=== PATIENT | female | born 1985 | race Two or more races ===

== ENCOUNTER → 2016-10-14 | Outpatient (CLI) | payer MEDICAID | LOC: CIMAGING 07:04 | PROVIDERS: ATTEND Surgery | DX: R10.9 Unspecified abdominal pain (principal) | CPT/HCPCS: 76705-PO ==

== ENCOUNTER 2016-10-22 08:56 | Observation (INO) | payer MEDICAID ==
--- NOTE | 2016-10-22 08:00 | GHP ---
[f rep st] PREOP HISTORY AND PHYSICAL DATE OF ADMISSION: 10/22/2016 CHIEF COMPLAINT: Abdominal pain with lump. HISTORY OF PRESENT ILLNESS: The patient is a 31-year-old female who was referred here for an abdominal lump that has been bothering her for 3-1/2 months. It has been causing her pain which has gotten progressively worse. It is near an incision originally from an abdominoplasty that has already had a hernia repair. Other past surgical history includes cholecystectomy, appendectomy, cervical vertebral fusion, and gastric bypass surgery. She also reports a history of pulmonary embolism after surgery and she has been told she will need to take Lovenox after any surgery under general anesthesia. Her current weight is 305 pounds. PAST MEDICAL HISTORY: Abdominal pain, back pain, migraines, depression, hypothyroid, seizure disorder, Jarek-Danlos syndrome, mast cell activation syndrome. PAST SURGICAL HISTORY: Abdominoplasty, appendectomy, cervical fusion, coccyx excision, panniculectomy, gastric bypass, cholecystectomy, foot surgery, hysterectomy, tonsillectomy, adenoidectomy. MEDICATIONS: Cymbalta, Keppra, lorazepam, Synthroid. ALLERGIES: No known drug allergies. FAMILY HISTORY: Includes cancer and coronary artery disease. SOCIAL HISTORY: The patient does not drink alcohol. She lives with her mother. No tobacco. PHYSICAL EXAMINATION: GENERAL: Reveals a well-developed, well-groomed 31-year- old female, alert and oriented x3, in no acute distress with a service dog. HEENT: Normocephalic, atraumatic. Pupils equal and round. CARDIAC: Regular rate and rhythm. PULMONARY: Clear to auscultation. ABDOMEN: Tender midline hernia, nonreducible. No skin color changes. EXTREMITIES: Warm and dry. IMPRESSION: This is a 31-year-old female with a recurrent incisional incarcerated ventral hernia. PLAN: Plan is to proceed with open incarcerated recurrent ventral hernia repair with possible use of mesh. Risks and options were discussed and she requests to proceed. We will plan to keep her in the hospital overnight and she will likely have Lovenox shots as soon as it is safe to do so. /[id number]/MODL MTDD
[2016-10-22] MEDS ORDERED: ceFAZolin 2 GM/DEXTROSE 100 ML IV ONE (09:09)
[2016-10-22] MEDS ORDERED: BUPIVACAINE 0.5% 30 ML SDV ONE (09:34)
[2016-10-22 09:38] VITALS: PULSE 79
[2016-10-22] MEDS ORDERED: LR 1,000 ML IV ONE (09:42)
--- NOTE | 2016-10-22 09:51 | PDANEPAE ---
ANE History of Present Illness VHR, pt has EDS and mast cell activation ANE Past Medical History - Cardiovascular History Hx Hypertension: No Hx Arrhythmias: No Hx Chest Pain: No Hx Coronary Artery / Peripheral Vascular Disease: No Hx CHF / Valvular Disease: No Hx Palpitations: No - Pulmonary History Hx COPD: No Hx Asthma/Reactive Airway Disease: No Hx Recent Upper Respiratory Infection: No Hx Oxygen in Use at Home: No Hx Sleep Apnea: Yes Sleep Apnea Screening Result - Last Documented: Positive Pulmonary History Comment: YENNI RECOMMENDED PT USE HS OXYGEN NOT CURRENTLY IN USE - Neurologic History Hx Cerebrovascular Accident: No Hx Seizures: Yes Hx Dementia: No Neurologic History Comment: SINCE 2003, LAST SEIZURE 2010 - Endocrine History Hx Diabetes: No Endocrine History Comment: HYPOTHYROID - Renal History Hx Renal Disorders: Yes Renal History Comment: UA INCONT - Liver History Hx Hepatic Disorders: No - Neurological & Psychiatric Hx Hx Neurological and Psychiatric Disorders: Yes Neurological / Psychiatric History Comment: MANIC DEPRESSIVE DISORDER. BORDERLINE PERSONALITY DISORDER. MIGRAINES 2-3 TIMES A YEAR. ANXIETY - Cancer History Hx Cancer: No - Congenital Disorder History Hx Congenital Disorders: No - GI History Hx Gastrointestinal Disorders: Yes Gastrointestinal History Comment: CHRONIC ABD/PELVIC PAIN - Other Health History Other Health History: ELHERS DANLOS MAST CELL SYNDROME. ANEMIA. DDD - Chronic Pain History Chronic Pain: Yes (MAGALIE FEET,LOWER BACK AND NECK) - Surgical History Prior Surgeries: LT ACHILLES TENDON 09/2015. L FOOT NEUROMA 08/21/2015. R GASTRONEMIUS RELEASE / NEUROMA EXCISION 05/2015. REMVL ABD LIPOMA 03/2015. CERVICAL FUSION 08/2014. GASTRIC BYPASS 2011. APPY. SHEREE ROSARIO Review of Systems Review of systems is: negative - Exercise capacity Exercise capacity: >=4 METS METS (RN): 4 METS - Systems Constitutional: Reports: no symptoms Cardiac: Reports: no symptoms Respiratory: Reports: no symptoms Muscolosketal: Reports: joint pain Skin: Reports: other (hypermobility) Neurological: Reports: depressed, seizure ANE Patient History - Allergies Allergies/Adverse Reactions: ibuprofen [Ibuprofen] Allergy (Mild, Verified 02/02/13 01:19) Itching adhesive tape Allergy (Verified 08/12/15 13:14) Rash doxycycline Allergy (Verified 08/12/15 13:14) headache,nausea and elevated BP gabapentin Allergy (Verified 09/17/15 12:44) NAUSEA, HEADACHE & ELEV BP haloperidol [From Haldol] Allergy (Verified 09/17/15 16:46) MUSCULAR STIFFNESS surgical glue Allergy (Uncoded 05/29/15 09:32) itching and blisters - Home Medications Home Medications: Acetaminophen/Codeine 300/30Mg [Tylenol #3 (*)] 1 each PO Q6 PRN 10/21/16 [Last Taken 10/21/16 23:00] DULoxetine [Cymbalta 30 MG (*)] 30 mg PO HS 10/21/16 [Last Taken 10/21/16] DULoxetine [Cymbalta 30 MG (*)] 60 mg PO DAILY 10/21/16 [Last Taken 10/22/16 08: 00] Levothyroxine [Synthroid 112 mcg (*)] 112 mcg PO DAILY06 10/21/16 [Last Taken ] levETIRAcetam [Keppra 500 mg (*)] 1,000 mg PO BID 10/21/16 [Last Taken 10/22/16 08:00] traZODone [traZODONE 50MG (*)] 50 mg PO HS 10/21/16 [Last Taken 10/21/16 23:00] - NPO status NPO Status: no food or drink >8 hours NPO Since - Liquids (Date): 10/22/16 NPO Since - Liquids (Time): 08:00 NPO Since - Solids (Date): 10/21/16 NPO Since - Solids (Time): 23:00 - Anes Hx Anes Hx: awareness under anesthesia - Smoking Hx Smoking Status: Former smoker - Alcohol Use Alcohol Use: None - Family Anes Hx Family Anes Hx: none Family Hx Anesthesia Complications: NEG ANE Labs/Vital Signs - Vital Signs Blood Pressure: 113/67 Heart Rate: 79 Respiratory Rate: 16 O2 Sat (%): 92 Height: 162.56 cm Weight: 136.078 kg ANE Physical Exam - Airway Neck exam: FROM, spinal fusion Mallampati Score: Class 2 Mouth exam: poor dentition - Pulmonary Pulmonary: no respiratory distress - Cardiovascular Cardiovascular: regular rate and rhythym - ASA Status ASA Status: III ANE Anesthesia Plan Anesthesia Plan: general endotracheal anesthesia
[2016-10-22] MEDS ORDERED: PREGABALIN 150 MG CAP PO ONE (09:58)
[2016-10-22] MEDS ORDERED: fentaNYL 100 MCG/2 ML INJ IVP ONE (09:58)
[2016-10-22] MEDS ORDERED: MIDAZOLAM 2 MG/2 ML VIAL IVP ONE (09:59)
[2016-10-22] MEDS ORDERED: fentaNYL 100 MCG/2 ML INJ ONE ×2 (10:42→12:53)
[2016-10-22] MEDS ORDERED: LIDOCAINE 2% 5 ML SDV ONE (10:42)
[2016-10-22] MEDS ORDERED: ROCURONIUM 100 MG/10 ML VIAL ONE (10:42)
[2016-10-22] MEDS ORDERED: PROPOFOL 200 MG/20 ML VIAL ONE (10:43)
[2016-10-22 11:13] LABS: ANION GAP 12 mEq/L (8-16); CALCIUM 9.4 mg/dL (8.5-10.4); CARBON DIOXIDE 23 mEq/l (22-31); CHLORIDE 109 mEq/L (97-110); CREATININE 0.7 mg/dL (0.6-1.0); GLOMERULAR FILTRATION RATE > 60; GLUCOSE 80 mg/dL (70-100); POTASSIUM 4.8 mEq/L (3.5-5.2); SODIUM 144 mEq/L (134-144); SPECIMEN HEMOLYSIS 151
[2016-10-22] MEDS ORDERED: HYDROmorphONE/DILAUDID 2 MG/ML INJ ONE (11:20)
[2016-10-22] MEDS ORDERED: SUGAMMADEX SODIUM 500 MG/5 ML VIAL IVP ONE (11:50)
[2016-10-22] MEDS ORDERED: OXYCODONE/APAP 5/325 TAB PO PRN ×2 (12:05→12:10)
[2016-10-22] MEDS ORDERED: MEPERIDINE 25 MG/ML SYR IVP PRN (12:10)
[2016-10-22] MEDS ORDERED: HYDROmorphONE/DILAUDID 1 MG/ML SYR IVP PRN (12:10)
[2016-10-22] MEDS ORDERED: PROMETHAZINE HCL 25 MG/ML INJ IVP PRN (12:10)
[2016-10-22] MEDS ORDERED: ONDANSETRON 4 MG/2 ML VIAL IVP PRN (12:10)
[2016-10-22] MEDS ORDERED: fentaNYL 100 MCG/2 ML INJ IVP PRN ×2 (12:10)
[2016-10-22] MEDS ORDERED: NALOXONE HCL 0.4 MG/ML INJ IVP PRN (12:10)
--- NOTE | 2016-10-22 12:59 | POSTANESTH ---
Post Anesthetic Evaluation Cardiovascular Status: Normal, Stable Respiratory Status: Normal, Stable Level of Consciousness/Mental Status: Can Participate in Eval Pain Control: Adequate, Prn Tx Ordered Nausea/Vomiting Control: Adequate, Prn Tx Ordered Complications Possibly Related to Anesthesia: None Noted
[2016-10-22] MEDS ORDERED: OXYCODONE/APAP 5/325 TAB ONE (14:07)
[2016-10-22 15:02] VITALS: BP 110/70; RESP 18; TEMP 98.2; O2SAT 91
== END 2016-10-22 14:58 | disposition home or self-care (01) ==
LOC: F3E 08:56
PROVIDERS: ADMIT Surgery; ATTEND Surgery
PROC: 0WQF0ZZ Repair Abdominal Wall, Open Approach (ICD-10-PCS; principal; 2016-10-22 12:30)
DX: K43.2 Incisional hernia without obstruction or gangrene (principal); E03.9 Hypothyroidism, unspecified; G40.909 Epilepsy, unspecified, not intractable, without status epilepticus; Q79.6 Ehlers-Danlos syndromes; D89.40 Mast cell activation, unspecified; Z86.711 Personal history of pulmonary embolism
CPT/HCPCS: J0690; J1170; J2250; J2704; J3010

== ENCOUNTER 2016-10-30 17:47 | Emergency (ER) | payer MEDICAID ==
[2016-10-30 18:01] VITALS: BP 139/99; PULSE 84; RESP 18; TEMP 98.2; O2SAT 96
--- NOTE | 2016-10-30 18:04 | EDPHY ---
H & P Time Seen by Provider: 10/30/16 17:53 HPI/ROS: CHIEF COMPLAINT: Wound dressing concerns HISTORY OF PRESENT ILLNESS: This patient is a 31 year old female post op day 8 from ventral hernia repair 10/22/[address] Pennington presenting with concerns regarding her wound dressing. She fell after surgery and her stitches came out. She visited Dr. Pennington who packed the wound and plans to take her to the OR for debridement and closure next week. She repacked and dressed her wound herself with gauze from the store as directed, and became concerned when the dressing became stuck to the wound and caused bleeding when she peeled it off. She is not currently on antibiotics. No fever, chills, vomiting, or other associated symptoms. Past Medical/Surgical History: 1. Hypothyroid 2. Seizure disorder 3. Back pain 4. Appendectomy 5. Cholecystectomy 6. Tonsillectomy and adenoidectomy 7. Hysterectomy Past medical records reviewed including admission from 10/22/16 for hernia repair. Social History: Mother at bedside. Nonsmoker. No alcohol use. Smoking Status: Former smoker Physical Exam: General Appearance: Alert, pleasant HEENT: Normal inspection Chest: Normal respiratory rate Gastrointestinal: Abdomen is soft and non-tender; there is an open ventral wound, approx 6cm in length, in the upper abdomen, no bleeding, erythema or drainage. Neurological: A&O, nonfocal, normal gait Skin: Warm and dry Extremities: Normal inspection Psychiatric: Mood and affect normal Constitutional: Initial Vital Signs Temperature (C) 36.8 C 10/30/16 17:50 Heart Rate 84 10/30/16 17:50 Respiratory Rate 18 10/30/16 17:50 Blood Pressure 139/99 H 10/30/16 17:50 O2 Sat (%) 96 10/30/16 17:50 O2 Delivery Mode Room Air Allergies/Adverse Reactions: ibuprofen [Ibuprofen] Allergy (Mild, Verified 10/30/16 17:59) Itching adhesive tape Allergy (Verified 10/30/16 17:59) Rash doxycycline Allergy (Verified 10/30/16 17:59) headache,nausea and elevated BP gabapentin Allergy (Verified 10/30/16 17:59) NAUSEA, HEADACHE & ELEV BP haloperidol [From Haldol] Allergy (Verified 10/30/16 17:59) MUSCULAR STIFFNESS surgical glue Allergy (Uncoded 05/29/15 09:32) itching and blisters Home Medications: Medication Instructions Recorded DULoxetine [Cymbalta 30 MG (*)] 30 mg PO HS 10/21/16 DULoxetine [Cymbalta 30 MG (*)] 60 mg PO DAILY 10/21/16 Levothyroxine [Synthroid 112 mcg 112 mcg PO DAILY06 10/21/16 (*)] levETIRAcetam [Keppra 500 mg (*)] 1,000 mg PO BID 10/21/16 traZODone [traZODONE 50MG (*)] 50 mg PO HS 10/21/16 Enoxaparin [Lovenox 40 MG (*)] 40 mg SQ DAILY #3 syr 10/22/16 oxyCODONE/APAP 5/325 [Percocet 1 - 2 tab PO Q4H PRN #40 tab 10/22/16 5/325 (*)] Medical Decision Making ED Course/Re-evaluation: 31 year old female s/p ventral hernia repair 10/22/17 and subsequent reopening of surgical wound. Exam reveals 6cm open ventral wound in the upper abdomen. No signs of infection. Plan for sterile repacking and dressing of the wound. The patient will follow up with Dr. Pennington, general surgeon, on Tuesday. Return precautions discussed. The patient is comfortable with this plan. Departure - Departure Disposition: Home, Routine, Self-Care Clinical Impression: S/P repair of ventral hernia, Encounter for postoperative wound check Condition: Good Instructions: Wound Healing and Your Diet (ED) Additional Instructions: 1. Call Dr. Pennington on Tuesday to follow up. 2. Pack the wound as shown. Cover the wound with a non-adherent dressing. Change the dressing daily. Referrals: Lupe Huertas MD [Primary Care Provider] - As per Instructions Jose Pennington MD [Medical Doctor] - As per Instructions Report Scribed for: Cammy Faust Report Scribed by: Isabel Lopez Date of Report: 10/30/16 Time of Report: 18:35 Physician Review and Approval Statement: 10/30/16 18:35 Concerned about infection. Portions of this note were transcribed by a medical sales specialist. I personally performed a history, physical exam, medical decision making, and confirmed accuracy of information the transcribed note.
== END 2016-10-30 18:35 | disposition home or self-care (01) ==
DX: Z48.01 Encounter for change or removal of surgical wound dressing (principal); Z87.891 Personal history of nicotine dependence

== ENCOUNTER 2016-11-05 08:24 | Day surgery (SDC) | payer MEDICAID ==
--- NOTE | 2016-11-05 07:01 | PDHPUP ---
History & Physical Update H&P update statement: This history and physical update is based on an assessment of the patient which was completed after admission or registration (within 24 hours), but prior to the surgery/procedure. H&P update: H&P reviewed & patient examined, no change in patient's condition since H&P completed
[2016-11-05] MEDS ORDERED: ceFAZolin 2 GM/DEXTROSE 100 ML IV ONE (08:46)
[2016-11-05] MEDS ORDERED: BUPIVACAINE 0.5% 30 ML SDV ONE (09:11)
[2016-11-05] MEDS ORDERED: SCOPOLAMINE HYDROBROMIDE 1.5 MG PATCH TD ONE (09:15)
[2016-11-05] MEDS ORDERED: MIDAZOLAM 2 MG/2 ML VIAL IVP ONE (09:16)
--- NOTE | 2016-11-05 09:20 | PDANEPAE ---
ANE History of Present Illness delayed abd wound closure ANE Past Medical History - Cardiovascular History Hx Hypertension: No Hx Arrhythmias: No Hx Chest Pain: No Hx Coronary Artery / Peripheral Vascular Disease: No Hx CHF / Valvular Disease: No Hx Palpitations: No - Pulmonary History Hx COPD: No Hx Asthma/Reactive Airway Disease: No Hx Recent Upper Respiratory Infection: No Hx Oxygen in Use at Home: No Hx Sleep Apnea: Yes Sleep Apnea Screening Result - Last Documented: Negative Pulmonary History Comment: YENNI RECOMMENDED PT USE HS OXYGEN NOT CURRENTLY IN USE - Neurologic History Hx Cerebrovascular Accident: No Hx Seizures: Yes Hx Dementia: No Neurologic History Comment: SINCE 2003, LAST SEIZURE 2010 - Endocrine History Hx Diabetes: No Endocrine History Comment: HYPOTHYROID - Renal History Hx Renal Disorders: Yes Renal History Comment: UA INCONT - Liver History Hx Hepatic Disorders: No - Neurological & Psychiatric Hx Hx Neurological and Psychiatric Disorders: Yes Neurological / Psychiatric History Comment: MANIC DEPRESSIVE DISORDER. BORDERLINE PERSONALITY DISORDER. MIGRAINES 2-3 TIMES A YEAR. ANXIETY - Cancer History Hx Cancer: No - Congenital Disorder History Hx Congenital Disorders: No - GI History Hx Gastrointestinal Disorders: Yes Gastrointestinal History Comment: CHRONIC ABD/PELVIC PAIN - Other Health History Other Health History: ELHERS DANLOS MAST CELL SYNDROME. ANEMIA. DDD - Chronic Pain History Chronic Pain: Yes (MAGALIE FEET,LOWER BACK AND NECK) - Surgical History Prior Surgeries: VENTRAL HERNIA 10/22/16. LT ACHILLES TENDON 09/2015. L FOOT NEUROMA 08/21/2015. R GASTRONEMIUS RELEASE / NEUROMA EXCISION 05/2015. REMVL ABD LIPOMA 03/2015. CERVICAL FUSION 08/2014. GASTRIC BYPASS 2011. APPY. SHEREE ROSARIO Review of Systems - Exercise capacity METS (RN): 4 METS - Pacemaker Date Pacemaker Last Checked: - ANE Patient History - Allergies Allergies/Adverse Reactions: ibuprofen [Ibuprofen] Allergy (Mild, Verified 10/30/16 17:59) Itching pregabalin [From Lyrica] Allergy (Mild, Verified 11/05/16 08:52) Itching adhesive tape Allergy (Verified 10/30/16 17:59) Rash doxycycline Allergy (Verified 10/30/16 17:59) headache,nausea and elevated BP gabapentin Allergy (Verified 10/30/16 17:59) NAUSEA, HEADACHE & ELEV BP haloperidol [From Haldol] Allergy (Verified 10/30/16 17:59) MUSCULAR STIFFNESS surgical glue Allergy (Uncoded 05/29/15 09:32) itching and blisters - Home Medications Home Medications: DULoxetine [Cymbalta 30 MG (*)] 30 mg PO HS 10/21/16 [Last Taken 11/04/16 23:00] DULoxetine [Cymbalta 30 MG (*)] 60 mg PO DAILY 10/21/16 [Last Taken 11/04/16 10: 00] Levothyroxine [Synthroid 112 mcg (*)] 112 mcg PO DAILY06 10/21/16 [Last Taken 10:00] levETIRAcetam [Keppra 500 mg (*)] 1,000 mg PO BID 10/21/16 [Last Taken 11/04/16 23:00] traZODone [traZODONE 50MG (*)] 50 mg PO HS 10/21/16 [Last Taken 11/04/16 23:00] TYLENOL #3 Q6 PRN 11/04/16 [Last Taken 11/04/16 10:00] - NPO status NPO Since - Liquids (Date): 11/04/16 NPO Since - Liquids (Time): 23:30 NPO Since - Solids (Date): 11/04/16 NPO Since - Solids (Time): 23:30 - Anes Hx Anes Hx: post operative nausea and vomiting - Smoking Hx Smoking Status: Former smoker - Family Anes Hx Family Hx Anesthesia Complications: NEG ANE Labs/Vital Signs - Vital Signs Blood Pressure: 107/69 Heart Rate: 84 Respiratory Rate: 16 O2 Sat (%): 94 Height: 162.56 cm Weight: 136.078 kg ANE Physical Exam - Airway Mallampati Score: Class 2 Mouth exam: normal dental/mouth exam - Pulmonary Pulmonary: no respiratory distress - Cardiovascular Cardiovascular: regular rate and rhythym - ASA Status ASA Status: III ANE Anesthesia Plan Anesthesia Plan: general endotracheal anesthesia
[2016-11-05] MEDS ORDERED: CEFAZOLIN 2 GM/DEXTROSE/100 ML BAG IV ONE (09:28)
[2016-11-05] MEDS ORDERED: LR 1,000 ML IV ONE (09:35)
[2016-11-05] MEDS ORDERED: LIDOCAINE 2% 5 ML SDV ONE (09:56)
[2016-11-05] MEDS ORDERED: fentaNYL 100 MCG/2 ML INJ ONE ×3 (09:56→11:26)
[2016-11-05] MEDS ORDERED: KETOROLAC 30 MG/1 ML SDV ONE (09:56)
[2016-11-05] MEDS ORDERED: SUCCINYLCHOLINE CHLORIDE*ANESTHESIA ONLY*200 MG/10 ML SYR IVP ONE (09:56)
[2016-11-05] MEDS ORDERED: DEXAMETHASONE 4 MG/ML VIAL ONE (09:56)
[2016-11-05] MEDS ORDERED: ROCURONIUM 50 MG/5 ML VIAL ONE (09:56)
[2016-11-05] MEDS ORDERED: ONDANSETRON 4 MG/2 ML VIAL ONE (09:56)
[2016-11-05] MEDS ORDERED: PROPOFOL 200 MG/20 ML VIAL ONE (09:57)
[2016-11-05] MEDS ORDERED: SUGAMMADEX SODIUM 200 MG/2 ML VIAL IVP ONE ×2 (10:08→10:09)
[2016-11-05] MEDS ORDERED: ALBUTEROL 3 ML DEYVIAL IH PRN (10:18)
[2016-11-05] MEDS ORDERED: NALOXONE HCL 0.4 MG/ML INJ IVP PRN (10:18)
[2016-11-05] MEDS ORDERED: ONDANSETRON 4 MG/2 ML VIAL IVP PRN (10:18)
[2016-11-05] MEDS ORDERED: LR 500 ML IV PRN (10:18)
[2016-11-05] MEDS ORDERED: PROMETHAZINE HCL 25 MG/ML INJ IVP PRN (10:18)
[2016-11-05] MEDS ORDERED: MEPERIDINE 25 MG/ML SYR IVP PRN (10:18)
[2016-11-05] MEDS ORDERED: THROMBIN (BOVINE) 5,000 UNIT VIAL TP ONE (10:26)
--- NOTE | 2016-11-05 10:54 | POSTOPPROG ---
Post Op Note Date of Operation: 11/05/16 Surgeon: Jose Pennington Anesthesiologist: marcial Anesthesia: GET(General Endotracheal) Pre-op Diagnosis: open wound Post-op Diagnosis: same Indication: closure Procedure: excisional debridement, advancement closure abd wound Findings: open 10 cm wound Inf/Abcess present in the surg proc area at time of surgery?: Yes Depth: Deep Incisional (Fascial) EBL: Minimal Complications: 0 Drains: Hermelindo Conley Specimen(s): wound
[2016-11-05] MEDS ORDERED: HYDROmorphONE/DILAUDID 1 MG/ML SYR ONE ×2 (11:06→11:26)
[2016-11-05] MEDS: HYDROmorphONE/DILAUDID 1 MG/ML SYR IVP PRN ×5 (11:09→11:55)
[2016-11-05] MEDS: fentaNYL 100 MCG/2 ML INJ IVP PRN ×4 (11:09→11:33)
[2016-11-05] MEDS ORDERED: HYDROmorphONE/DILAUDID 2 MG TAB ONE ×2 (12:12→16:35)
[2016-11-05] MEDS: HYDROmorphONE/DILAUDID 2 MG TAB PO PRN ×2 (12:14→16:45)
[2016-11-05 13:00] VITALS: PULSE 93; TEMP 99.1
[2016-11-05] MEDS ORDERED: ENOXAPARIN 40 MG/0.4 ML SYR SC SCH (15:45)
[2016-11-05 17:14] VITALS: BP 109/80; RESP 14
[2016-11-05 17:17] VITALS: O2SAT 93
[2016-11-08] MEDS ORDERED: PATCH REMOVAL 1 EA PATCH TD SCH (09:16)
== END 2016-11-05 17:05 | disposition home or self-care (01) ==
LOC: FSGY 08:24
PROVIDERS: ATTEND Surgery
PROC: 0HQ7XZZ Repair Abdomen Skin, External Approach (ICD-10-PCS; principal; 2016-11-05 10:15)
PROC: 0JB80ZZ Excision of Abdomen Subcutaneous Tissue and Fascia, Open Approach (ICD-10-PCS; principal; 2016-11-05 10:15)
DX: T81.31XA Disruption of external operation (surgical) wound, not elsewhere classified, initial encounter (principal); W19.XXXA Unspecified fall, initial encounter; Z98.890 Other specified postprocedural states; E03.9 Hypothyroidism, unspecified; G40.909 Epilepsy, unspecified, not intractable, without status epilepticus; Q79.6 Ehlers-Danlos syndromes; D89.40 Mast cell activation, unspecified; Z86.711 Personal history of pulmonary embolism; Z87.891 Personal history of nicotine dependence; Z98.1 Arthrodesis status; Z98.84 Bariatric surgery status
CPT/HCPCS: J0330; J0690; J1100; J1170; J1200; J1650; J1885; J2250; J2405; J2704; J3010

== ENCOUNTER 2016-11-11 17:40 | Emergency (ER) | payer MEDICAID ==
[2016-11-11] MEDS ORDERED: NS 1,000 ML IV ONE (18:18)
[2016-11-11] MEDS ORDERED: ACETAMINOPHEN 500 MG TAB PO ONE (18:48)
[2016-11-11 18:55] LABS: % IMMATURE GRANULYOCYTES 0.3 % (0.0-1.1); ABSOLUTE IMMATURE GRANULOCYTES 0.02 10^3/uL (0.00-0.10); ADD DIFF? NO; ADD MORPH? NO; ADD SCAN? NO; ATYPICAL LYMPHOCYTE FLAG 0 (0-99); FRAGMENT RBC FLAG 0 (0-99); HEMATOCRIT 35.1 % (38.0-47.0); HEMOGLOBIN 11.5 g/dL (12.6-16.3); LEFT SHIFT FLG 0 (0-99); LIPEMIA HEMOLYSIS FLAG 80 (0-99); MEAN CELL HEMOGLOBIN 28.1 pg (27.9-34.1); MEAN CELL HEMOGLOBIN CONCENTR. 32.8 g/dL (32.4-36.7); MEAN CELL VOLUME 85.8 fL (81.5-99.8); MEAN PLATELET VOLUME 10.6 fL (8.7-11.7); PLATELET CLUMPS FLAG 0 (0-99); PLATELET COUNT 311 10^3/uL (150-400); RED BLOOD CELL COUNT 4.09 10^6/uL (4.18-5.33); RED CELL DISTRIBUTION WIDTH 12.7 % (11.5-15.2)
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
[2016-11-11 19:05] LABS: ANION GAP 12 mEq/L (8-16); CALCIUM 9.1 mg/dL (8.5-10.4); CARBON DIOXIDE 25 mEq/l (22-31); CHLORIDE 101 mEq/L (97-110); CREATININE 0.7 mg/dL (0.6-1.0); GLOMERULAR FILTRATION RATE > 60; GLUCOSE 99 mg/dL (70-100); POTASSIUM 3.7 mEq/L (3.5-5.2); SODIUM 138 mEq/L (134-144)
[2016-11-11] MEDS ORDERED: ERTAPENEM 1 GM in NS 100 ML IV ONE (19:44)
[2016-11-11 20:26] VITALS: BP 106/64; PULSE 90; RESP 15; TEMP 100.6; O2SAT 98
--- NOTE | 2016-11-11 21:46 | GCON ---
[f rep st] CONSULTATION DATE OF CONSULTATION: 11/11/2016 CHIEF COMPLAINT: Fever, chills, body aches. HISTORY OF PRESENT ILLNESS: This is a 31-year-old female, who is status post ventral hernia repair by my partner, Dr. Pennington. The patient after her uneventful hernia repair subsequently developed wou nd issues after falling. She was subsequently managed with wet-to-dry dressings, and subsequently t aken back to the operating room for delayed primary closure. At that point in time, a DELIA drain was placed. At any rate, the patient return to the clinic yesterday and was feeling well. The DELIA drain was discontinued, as it had minimal serosanguineous output. The patient states that she felt well yesterday. Today states that she woke up, had some fevers, chills, and actually had a fever to 102 degrees Fahrenheit at home. That combined with her general body aches, she called the clinic and wa s advised to come to the Emergency Department. Here in the Emergency Department, her T-max was 38.5 , which broke with some ambulation. She complains of body aches. Continues to eat appropriately. States that she still continues to have body aches and that her belly is warm to the touch. Other t vicente the above, she has no complaints. PAST MEDICAL HISTORY: Chronic abdominal pain, chronic back pain, classic migraine, depression, hypo thyroidism, seizure disorder. PAST SURGICAL HISTORY: Abdominoplasty, appendectomy, cervical fusion, foot surgery, cholecystectomy , gastric bypass, hysterectomy, tonsillectomy, and she is now status post ventral hernia repair. MEDICATIONS: Cymbalta, Keppra, lorazepam, and Synthroid. ALLERGIES: None. FAMILY HISTORY: Noncontributory. SOCIAL HISTORY: Denies alcohol. She is currently disabled and lives with her mother. PHYSICAL EXAMINATION: VITALS: Temperature 37.7, blood pressure 120/80, heart rate 96, and she is 9 4% on room air. GENERAL: She is well groomed, pleasant, nontoxic-appearing. SKIN: Warm and dry. There is a little warmth around the infraumbilical incision with a mild amount of cellulitis. HEEN T: Pupils are equal, round, and reactive to light and accommodation. Mucous membranes are moist. CARDIAC: She has got a regular rate and rhythm. RESPIRATORY: Clear to auscultation bilaterally wi th no increased work of breathing. ABDOMEN: Obese. The incision appears to be well approximated. The previous DELIA site is clean, dry, and intact. There is a small amount of pink erythema surroundi ng the incision. EXTREMITIES: Warm. MUSCULOSKELETAL: Appears to ambulate with a normal gait. NE URO: Alert and oriented x4. PSYCH: Mood and affect normal. REVIEW OF SYSTEMS: A full 10-point review was performed. LABS: White count 7, H and H 11 and 35, no left shift. Chemistry is unremarkable. ASSESSMENT AND PLAN: A 31-year-old female, status post complex ventral hernia repair with subsequen t dehiscence and delayed primary closure. Now post procedure day 1 from drain removal. The patient is nontoxic appearing. Again, I feel that her fever is likely real, but multifactorial. I feel th at she has been fairly minimally ambulatory, and part of it is likely atelectasis. She does have a mild amount of warm, pink erythema around the incision, which could represent early infection, altho ugh it does not appear to have any underlying fluctuance or fluid collection. Given the fact that t he DELIA was just discontinued, I feel that would be unlikely. At any rate, I have asked the Emergency Department to give the patient a single dose of IV antibiotics and hydrate her. If she feels well, we will plan to discharge her home on oral antibiotics with close followup here in the clinic. She appeared amenable to this. She wants to go home. It appears that she is already feeling better wi th minimal treatment here in the Emergency Department. We will plan to follow up after her fluids t o see if she is amenable to home. /[id number]/MODL
== END 2016-11-11 21:14 | disposition home or self-care (01) ==
DX: T81.4XXA Infection following a procedure, initial encounter (principal); Z87.891 Personal history of nicotine dependence; Y82.8 Other medical devices associated with adverse incidents
CPT/HCPCS: 96365; J1335

== ENCOUNTER 2016-11-13 17:36 | Emergency (ER) | payer MEDICAID ==
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
[2016-11-13 17:53] VITALS: BP 94/58; PULSE 98; RESP 18; TEMP 98.1; O2SAT 96
== END 2016-11-13 18:39 | disposition home or self-care (01) ==
DX: T81.89XA Other complications of procedures, not elsewhere classified, initial encounter (principal); Z87.891 Personal history of nicotine dependence; Y82.8 Other medical devices associated with adverse incidents

== ENCOUNTER 2016-12-02 22:55 | Emergency (ER) | payer MEDICAID ==
[2016-12-02 23:01] VITALS: TEMP 98.4
[2016-12-02] MEDS ORDERED: PIPERACILLIN SODIUM/TAZOBACTAM 3.375 GM in NS 100 ML IV ONE (23:48)
--- NOTE | 2016-12-02 23:48 | EDPHY ---
H & P Time Seen by Provider: 12/02/16 23:43 HPI/ROS: HPI: Ms. Woo is a 31 yrs, female who presents with Chief Complaint: Abdominal incision complication Location: Midline abdomen Quality: Foul smell in order Duration: Last several days Signs and Symptoms: No fever, no redness, no drainage, positive incisional site pain Timing: Gradual onset, constant Severity: Severe Context: Patient has Jarek Danlos syndrome, recurrent incisional incarcerated ventral hernia with multiple abdominal surgeries. On 10/22/16 patient underwent an open ventral hernia repair with Dr. Pennington. Due to complications of dehiscence, on 11/05/2016, patient underwent an excisional debridement with advanced flap closure. Patient presents today with complaints of foul smelling odor and another dehiscence superior to the small 1 prior. Modifying Factors: Called on-call surgeon who instructed to come to the ER Comment: ROS: Eyes: No blurred vision Respiratory: No shortness of breath, no cough Cardiovascular: No chest pain Gastrointestinal: No nausea, no vomiting no diarrhea Genitourinary: No dysuria Extremities: No myalgias Neurologic: No weakness, no numbness Skin: No rashes Hematologic: No bruising, no bleeding MEDICAL/SURGICAL HISTORY: Jarek-Danlos syndrome, endometriosis, seizures, hypothyroid, depression, anxiety, YENNI with oxygen at night. Hysterectomy, gastric bypass surgery, appendectomy, abdominal plasty, cervical fusion, panniculectomy. Social History: Does not drink alcohol. Lives with her mother. Denies tobacco use. Smoking Status: Former smoker Physical Exam: CONSTITUTIONAL: Obese adult female, well-appearing, anxious, awake and alert, no obvious distress HEENT: Atraumatic and normocephalic, PERRL, EOMI. Tympanic membranes clear. Oropharynx clear, no exudate and moist pink mucosa. Airway patent. No lymphadenopathy. No meningismus. Cardiovascular: Normal S1/S2, regular rate, regular rhythm, without murmur rub or gallop. PULMONARY/CHEST: Symmetrical and nontender. Clear to auscultation bilaterally Good air movement. No accessory muscle usage. ABDOMEN: Soft, nondistended, no rebound, no guarding, no peritoneal signs, no masses or organomegaly. No CVAT. Extremely tender midline, small 0.5 inch opening midline x2; 2. #2, 4 x 4 gauze packing, foul smelling removed. Minimal surrounding erythema; positive inflammation. Wound bed has granulation tissue and pink in color. EXTREMITIES: 2/2 pulses, no deformities, no clubbing, no cyanosis or edema. NEUROLOGICAL: no focal neuro deficits. GCS 15. SKIN: Warm and dry, see above. no rash. Good capillary refill. Constitutional: Initial Vital Signs Temperature (C) 36.9 C 12/02/16 22:58 Heart Rate 86 12/02/16 22:58 Respiratory Rate 18 12/02/16 22:58 Blood Pressure 103/70 12/02/16 22:58 O2 Sat (%) 94 12/02/16 22:58 O2 Delivery Mode Room Air Allergies/Adverse Reactions: ibuprofen [Ibuprofen] Allergy (Mild, Verified 12/02/16 23:01) Itching pregabalin [From Lyrica] Allergy (Mild, Verified 12/02/16 23:01) Itching adhesive tape Allergy (Verified 12/02/16 23:01) Rash doxycycline Allergy (Verified 12/02/16 23:01) headache,nausea and elevated BP gabapentin Allergy (Verified 12/02/16 23:01) NAUSEA, HEADACHE & ELEV BP haloperidol [From Haldol] Allergy (Verified 12/02/16 23:01) MUSCULAR STIFFNESS nortriptyline Allergy (Verified 12/02/16 23:01) surgical glue Allergy (Uncoded 12/02/16 23:01) itching and blisters Home Medications: Medication Instructions Recorded DULoxetine [Cymbalta 30 MG (*)] 30 mg PO HS 10/21/16 DULoxetine [Cymbalta 30 MG (*)] 60 mg PO DAILY 10/21/16 Levothyroxine [Synthroid 112 mcg 112 mcg PO DAILY06 10/21/16 (*)] levETIRAcetam [Keppra 500 mg (*)] 1,000 mg PO BID 10/21/16 traZODone [traZODONE 50MG (*)] 50 mg PO HS 10/21/16 Medical Decision Making ED Course/Re-evaluation: Labs, IV medication, wound care Wound irrigated with 1 L normal saline and packed with 1 inch iodoform. ABD placed and secured with paper tape. Spoke with Dr. Kimberly Harper regional geodetic advisor for Dr. Pennington. Discussed removal of packing. It was recommended that wound will be irrigated with normal saline, moist wet packing placed, IV Zosyn given with follow-up appointment tomorrow with her at 2:00 p.m. at which time she will determine wound care plan as well as if further antibiotics are needed. Differential Diagnosis: Differential diagnosis includes wound dehiscence, cellulitis, abscess. - Data Points Laboratory Results: 12/03/16 12/03/16 00:13 00:13 WBC Pending RBC Pending Hgb Pending Hct Pending MCV Pending MCH Pending MCHC Pending RDW Pending Plt Count Pending MPV Pending Neut % (Auto) Pending Lymph % (Auto) Pending Yell % (Auto) Pending Eos % (Auto) Pending Baso % (Auto) Pending Nucleat RBC Rel Count Pending Absolute Neuts (auto) Pending Absolute Lymphs (auto) Pending Absolute Monos (auto) Pending Absolute Eos (auto) Pending Absolute Basos (auto) Pending Absolute Nucleated RBC Pending Immature Gran % Pending Immature Gran # Pending Sodium Pending Potassium Pending Chloride Pending Carbon Dioxide Pending Anion Gap Pending BUN Pending Creatinine Pending Estimated GFR Pending Glucose Pending Calcium Pending Medications Given: Discontinued Medications Piperacillin Sod/Tazobactam (Sod 3.375 gm/ Sodium Chloride) 100 mls @ 200 mls/ hr IV EDNOW ONE PRN Reason: Protocol Stop: 12/03/16 00:17 Last Admin: 12/03/16 00:34 Dose: 100 mls Lorazepam (Ativan Injection) 1 mg IVP EDNOW ONE Stop: 12/03/16 00:20 Last Admin: 12/03/16 00:34 Dose: 1 mg Departure - Departure Disposition: Home, Routine, Self-Care Clinical Impression: Abdominal wound dehiscence Qualifiers: Encounter type: subsequent encounter Qualified Code(s): T81.30XD - Disruption of wound, unspecified, subsequent encounter Condition: Fair Instructions: Wound Infection (ED) Additional Instructions: Leave dressing in place until evaluated by Dr. Kimberly Harper tomorrow. Do not allow dressing to get wet. Referrals: Lupe Huertas MD [Primary Care Provider] - As per Instructions Kimberly Harper MD [Medical Doctor] - 12/03/16 2:00 pm
[2016-12-03] MEDS ORDERED: LORazepam 2 MG/ML INJ IVP ONE (00:19)
[2016-12-03 00:47] LABS: ANION GAP 11 mEq/L (8-16); CALCIUM 9.3 mg/dL (8.5-10.4); CARBON DIOXIDE 27 mEq/l (22-31); CHLORIDE 103 mEq/L (97-110); CREATININE 0.6 mg/dL (0.6-1.0); GLOMERULAR FILTRATION RATE > 60; GLUCOSE 85 mg/dL (70-100); POTASSIUM 3.8 mEq/L (3.5-5.2); SODIUM 141 mEq/L (134-144)
[2016-12-03 00:51] LABS: % IMMATURE GRANULYOCYTES 0.4 % (0.0-1.1); ABSOLUTE IMMATURE GRANULOCYTES 0.02 10^3/uL (0.00-0.10); ADD DIFF? NO; ADD MORPH? NO; ADD SCAN? NO; ATYPICAL LYMPHOCYTE FLAG 0 (0-99); FRAGMENT RBC FLAG 0 (0-99); HEMATOCRIT 38.3 % (38.0-47.0); HEMOGLOBIN 12.4 g/dL (12.6-16.3); LEFT SHIFT FLG 0 (0-99); LIPEMIA HEMOLYSIS FLAG 80 (0-99); MEAN CELL HEMOGLOBIN 27.9 pg (27.9-34.1); MEAN CELL HEMOGLOBIN CONCENTR. 32.4 g/dL (32.4-36.7); MEAN CELL VOLUME 86.1 fL (81.5-99.8); PLATELET CLUMPS FLAG 0 (0-99); PLATELET COUNT 260 10^3/uL (150-400); RED BLOOD CELL COUNT 4.45 10^6/uL (4.18-5.33); RED CELL DISTRIBUTION WIDTH 13.2 % (11.5-15.2)
[2016-12-03 01:33] VITALS: BP 94/55; PULSE 70; RESP 16; O2SAT 95
== END 2016-12-03 01:33 | disposition home or self-care (01) ==
DX: T81.30XA Disruption of wound, unspecified, initial encounter (principal); Z90.49 Acquired absence of other specified parts of digestive tract; Z87.891 Personal history of nicotine dependence; Y82.8 Other medical devices associated with adverse incidents
CPT/HCPCS: 96365; J2060; J2543